=== PATIENT | female | born 1985 | race Caucasian/White ===

== ENCOUNTER 2019-10-19 15:25 | Emergency (ER) | payer MEDICAID, SELFPAY ==
[2019-10-19 15:29] VITALS: BMI 25.0
[2019-10-19 15:32] VITALS: BP 131/74; PULSE 69; RESP 16; TEMP 36.7; O2SAT 100
--- NOTE | 2019-10-19 15:59 | W.ED.BACK ---
Documented by User: MANUEL Madrid 10/24/19 07:02 HPI - Back Pain/Injury General: Chief Complaint: Back Pain/Injury Stated Complaint: Back pain Time Seen by Provider: 10/19/19 15:59 PFSH ED PFSH: Statuses (acute, chronic, etc) shown below reflect problem list status as previously entered and may not be historically accurate Social History Smoking and tobacco status: current every day smoker Course Vital Signs: Vital signs: Vital Signs Temperature 98.2 F 10/19/19 18:26 Pulse Rate 70 10/19/19 18:26 Respiratory Rate 14 10/19/19 18:26 Blood Pressure 127/80 10/19/19 18:26 Pulse Oximetry 100 10/19/19 18:26 MDM - Back Pain/Injury MDM Narrative: Medical decision making narrative: I had started a note in this patient but ended up taking my name off because I didn't get to see her prior to shift change. Pt was ultimately seen/assessed by Keyon Michael PA-C. I did not participate in any aspect of her care ES Discharge Plan Discharge Patient Disposition: Home, Self-Care Clinical Impression: Contusion of rib on right side Qualifiers: Encounter type: initial encounter Qualified Code(s): S20.211A - Contusion of right front wall of thorax, initial encounter Condition: Stable Discharge Orders: Discharge Order (Routine); Ordered 10/19/19 Ordered By: Keyon Michael Referrals: Magaly Coppola FNP [Family Provider] - Debbie Gerber FNP [Primary Care Provider] - Discharge Diet: Regular Discharge Activity: Increase activity as tolerated Activity Restrictions/Additional Instructions: Follow-up with your primary care doctor in 5-7 days for reevaluation. Apply ice and/or warm moist heat to painful area for some symptom relief. Take [id number] ibuprofen or Aleve for pain and inflammation. Limit lifting for the next 3-4 days. Discharge Date/Time: 10/19/19 18:27 Coding Level of Care Code ED Security Orderly for Chg Fwd Documented by User: MANUEL Geiger 10/20/19 03:24 HPI - Back Pain/Injury General: Chief Complaint: Back Pain/Injury Stated Complaint: Back pain Time Seen by Provider: 10/19/19 15:59 History of Present Illness: HPI Narrative: Patient is a 34-year-old female comes into the ED with right posterior rib pain. Pain started last night she had trouble sleeping and getting into a comfortable position. She says last night she was getting laundry out of her washer and her washing machine sits tall when she reached to the time to get close out he put a lot of pressure and weight on the right side of her body. She said in her feet were actually off the ground while she was reaching in to Grab clothes so all of her weight was on the right side of ribs. She has taken ibuprofen at 3:00 this morning and it didn't provide any relief. Pain is sharp and pleuritic. She has mild nausea Due to pain. Denies any other trauma her mechanism of injury. Denies shortness of breath, chest pain, vomiting, bladder or bowel symptoms. Review of Systems General: Reports: 10 or more systems reviewed and unremarkable except in HPI and below PFSH ED PFSH: Statuses (acute, chronic, etc) shown below reflect problem list status as previously entered and may not be historically accurate Social History Smoking and tobacco status: current every day smoker Physical Exam Const: COMMON NORMALS: oriented x3 HENMT: COMMON NORMALS: normocephalic HEAD & SCALP: normocephalic MOUTH: oral and palatal mucosa normal THROAT: posterior oropharynx normal and uvula midline Neck/C-Spine: COMMON NORMALS: supple GENERAL: Yes normal visual inspection Chest: CHEST: Yes localized rib tenderness with anteroposterior compression Location: 9th rib, 10th rib and 11th rib Resp: COMMON NORMALS: normal respiratory effort, no retractions, no use of accessory muscles and clear to auscultation bilaterally AUSCULTATION: clear to auscultation bilaterally Cardio: COMMON NORMALS: regular rate, regular rhythm, S1 normal heart sound, S2 normal heart sound, no gallops, no clicks, no murmurs and peripheral pulses 2+ throughout RATE: regular rate RHYTHM: regular rhythm HEART SOUNDS: S1 normal and S2 normal PERIPHERAL PULSES: pulses 2+ throughout GI: COMMON NORMALS: normal to inspection, nondistended, normoactive bowel sounds, soft to palpation, non-tender and no masses PALPATION: Yes soft : COMMON NORMALS: Yes no CVA tenderness BLADDER/KIDNEY EXAM: Yes no CVA tenderness Back/Pelvis: COMMON NORMALS: no CVA tenderness THORACIC SPINE/UPPER BACK: Yes paraspinal muscle tenderness Thoracic paraspinal muscle tenderness: right Extremity: COMMON NORMALS: normal to inspection Neuro: COMMON NORMALS: oriented x3 and moves all extremities Course Vital Signs: Vital signs: Vital Signs Temperature 98.2 F 10/19/19 18:26 Pulse Rate 70 10/19/19 18:26 Respiratory Rate 14 10/19/19 18:26 Blood Pressure 127/80 10/19/19 18:26 Pulse Oximetry 100 10/19/19 18:26 MDM - Back Pain/Injury Imaging Data^: CXR: Attestation: I personally reviewed and interpreted this imaging study as follows: My impression: No acute findings or rib fractures seen. pending final radiology report. Discharge Plan Discharge Patient Disposition: Home, Self-Care Clinical Impression: Contusion of rib on right side Qualifiers: Encounter type: initial encounter Qualified Code(s): S20.211A - Contusion of right front wall of thorax, initial encounter Condition: Stable Discharge Orders: Discharge Order (Routine); Ordered 10/19/19 Ordered By: Keyon Michael Referrals: Magaly Coppola FNP [Family Provider] - Debbie Gerber FNP [Primary Care Provider] - Discharge Diet: Regular Discharge Activity: Increase activity as tolerated Activity Restrictions/Additional Instructions: Follow-up with your primary care doctor in 5-7 days for reevaluation. Apply ice and/or warm moist heat to painful area for some symptom relief. Take [id number] ibuprofen or Aleve for pain and inflammation. Limit lifting for the next 3-4 days. Discharge Date/Time: 10/19/19 18:27 Coding Level of Care Code ED Security Orderly for Manuel Haji
--- NOTE | 2019-10-19 17:24 | XR_ITS ---
WS: [id number] Right rib detail, 10/19/2019 Clinical Data: posterior right rib pain Comparison: None. Findings: The right ribs are intact without fracture. No bone destruction or erosion is seen. There is no subc utaneous emphysema or right-sided pneumothorax. The adjacent right clavicle, scapula and humerus are not remarkable. There are clips in the right upper quadrant from a cholecystectomy. XR/XR ribs RT 2V* [id number] Impression: Negative right rib detail.
[2019-10-19] MEDS: ketorolac 30 mg/mL INJ IM (17:35)
[2019-10-19 18:26] VITALS: BP 127/80; PULSE 70; RESP 14; TEMP 36.8; O2SAT 100
== END 2019-10-19 18:27 | disposition home or self-care (01) ==
PROVIDERS: Emergency Provider Physician Assistant; Family Provider Nurse Practitioner Family; PCP Nurse Practitioner
DX: S20.211A Contusion of right front wall of thorax, initial encounter (principal); X50.9XXA Other and unspecified overexertion or strenuous movements or postures, initial encounter; F17.210 Nicotine dependence, cigarettes, uncomplicated
CPT/HCPCS: 71100; 96372; 99281; J1885

== ENCOUNTER 2020-08-02 11:33 | Emergency (ER) | payer MEDICAID, SELFPAY ==
[2020-08-02 11:36] VITALS: PULSE 56; RESP 22; O2SAT 98; BMI 28.1
--- NOTE | 2020-08-02 11:43 | W.ED.ABDPA2 ---
HPI - Abdominal Pain General: Chief Complaint: Abdominal Pain Stated Complaint: SEVERE ABDOMINAL PAIN Time Seen by Provider: 08/02/20 11:41 History of Present Illness: HPI narrative: Patient is a 35-year-old female comes to the ED with abdominal pain, nausea/vomiting. Symptoms started last night. She has a past surgical history of cholecystectomy, and tubal ligation. Abdominal pain is located in the left lower quadrant and lower pelvic region. Pain is constant and it is rated 8 out of 10. endorses diarrhea, but chronic issue since gall bladder removal-no acute change. She has had multiple episodes of emesis since onset of symptoms last night. Denies fever, chills, chest pain, shortness of breath, dysuria, hematuria, urinary frequency/urgency, vaginal bleeding or vaginal lesions. Associated Symptoms: Reports diarrhea (chronic issue since gall bladder removal-no acute change), nausea and vomiting; Denies chills, constipation, dysuria, fever(s), hematochezia and hematuria Review of Systems Const: Denies: fever(s), chills or fatigue Eyes: Denies: change in vision or eye discomfort ENMT: Denies: throat pain, odynophagia, nasal discharge or nasal congestion Card: Denies: chest pain, palpitations, edema, swelling of feet/ankles, dyspnea on exertion or orthopnea Resp: Denies: dyspnea, productive cough or non-productive cough GI: Reports: abdominal pain, nausea, vomiting and diarrhea (chronic issue since gall bladder removal-no acute change); Denies: constipation or hematochezia : Denies: flank pain, dysuria or hematuria Musc: Denies: neck pain, back pain or extremity swelling Skin/Breast: Denies: rash or new lesions Neuro: Denies: headache(s), numbness in extremities or weakness in extremities PFSH ED PFSH: Family History Sister Bleeding disorder ITP Grandmother Cancer Grandma - Maternal : Colon Cancer Grandfather Cancer Lung Cancer Mother Diabetes Social History Smoking and tobacco status: current every day smoker Second hand smoke exposure: Yes Marital status: Physical Exam Const: COMMON NORMALS: patient oriented x3 and alert GENERAL APPEARANCE: cooperative and ill appearing (Patient appears some pain and discomfort. She is also having episodes of emesis upon arrival here in the ED.) HENMT: COMMON NORMALS: normocephalic HEAD & SCALP: normocephalic MOUTH: Normal oral and palatal mucosa present THROAT: posterior oropharynx normal and uvula midline Neck/C-Spine: COMMON NORMALS: supple GENERAL: Yes normal visual inspection Resp: COMMON NORMALS: normal respiratory effort, No retractions, No use of accessory muscles and clear to auscultation bilaterally EFFORT & INSPECTION: Yes able to speak in complete sentences, No tachypneic, No respiratory distress and No labored AUSCULTATION: clear to auscultation bilaterally Cardio: COMMON NORMALS: regular rate, regular rhythm, S1 normal heart sound present, S2 normal heart sound present, No gallops present (Cardio), No clicks present (Cardio), No murmurs present (Cardio) and Peripheral pulses 2+ throughout RATE: regular rate RHYTHM: regular rhythm HEART SOUNDS: S1 normal heart sound present and S2 normal heart sound present PERIPHERAL PULSES: Peripheral pulses 2+ throughout GI: COMMON NORMALS: Normal to inspection, nondistended, normoactive bowel sounds present, Soft to palpation and no masses PALPATION: Yes Soft to palpation and Yes Tenderness to palpation present (GI) Details: LLQ (moderate to severe tenderness) and other (Tenderness over bladder.) : BLADDER/KIDNEY EXAM: Yes CVA tenderness on the left Back/Pelvis: GENERAL BACK: Yes CVA tenderness Extremity: COMMON NORMALS: normal to inspection and no pedal edema Neuro: COMMON NORMALS: patient oriented x3 SENSORIUM/ORIENTATION: Yes alert GAIT: Yes Normal gait present Skin: GENERAL SKIN EXAM: dry skin Course Reevaluation(s): Reevaluation #1: After patient was given morphine her pain had improved. Blood pressure was in the room was 96/57. Time: 13:05 Reevaluation #2: Patient states she feels a lot better and her pain is under control and she is ready for discharge. Time: 14:10 Vital Signs: Vital signs: Vital Signs Pulse Rate 73 08/02/20 17:15 Respiratory Rate 20 H 08/02/20 17:15 Blood Pressure 95/62 08/02/20 17:15 Pulse Oximetry 97 08/02/20 17:15 BP 96/57 when I was in the Room. MDM - Abdominal Pain MDM Narrative: Medical decision making narrative: Patient is a 35-year-old female comes to the ED with left lower abdomen pain, nausea vomiting. Patient had some left CVA tenderness. White blood cell count 14.1 and rest of CBC and CMP was unremarkable. UA showed RBCs. CT the abdomen showed kidney stone on left side at UVJ that is approximately 7 x 4 mm. After patient got some IV fluids, Zofran and morphine her pain greatly improved. I placed a referral order with case management for patient to be referred to Dr. Lay. Patient was discharged with hydrocodone, naproxen, Zofran and tamsulosin. She was told to strain her urine to catch stone and bring to Dr. Lay's office for stone to be analyzed. Return to ED precautions given. Patient understood and agreed with plan. Lab Data: Attestation: I reviewed the patient's lab results. Labs: Lab Results 08/02/20 08/02/20 08/02/20 Range/Units 13:58 13:58 13:58 WBC 14.1 H (4.0-10.0) 10^3/ uL RBC 4.86 (4.1-5.3) 10^6/u L Hgb 15.1 (11.5-15.3) g/dL Hct 45.4 (37.0-47.0) % MCV 93.4 (81-99) fL MCH 31.1 (28.0-34.0) pg MCHC 33.3 (30.0-36.0) g/dL RDW 11.6 L (12.1-15.1) % Plt Count 251 (130-400) 10^3/c mm MPV 9.6 (7.4-10.4) fL Neut % (Auto) 80.4 % Lymph % (Auto) 14.5 % Converse % (Auto) 4.4 % Eos % (Auto) 0.1 % Baso % (Auto) 0.3 % Neut # (Auto) 11.33 H (1.8-7.7) 10^3/u L Lymph # (Auto) 2.0 (0.8-4.8) 10^3/u L Converse # (Auto) 0.6 (0.2-0.9) 10^3/u L Eos # (Auto) 0.0 (0.0-0.8) 10^3/u L Baso # (Auto) 0.0 (0.0-0.1) 10^3/u L Nucleated RBC % (a uto) 0 % Nucleated RBCs # 0.0 /100WBC Sodium 137 (136-145) mmol/L Potassium 3.7 (3.5-5.1) mmol/L Chloride 103 (98-107) mmol/L Carbon Dioxide 24 (22-29) mmol/L Anion Gap 13.7 (5-19) BUN 10 (6-20) mg/dL Creatinine 0.9 (0.5-0.9) mg/dL GFR Calculation 70.8 L (90-130) mL/min Glucose 122 H (65-115) mg/dL Calculated Osmolal ity 284 L (285-295) mOsm/k g Lactic Acid (0.5-2.2) mmol/L Calcium 9.1 (8.5-10.5) mg/dL Total Bilirubin 0.5 (0.15-1.2) mg/dL AST 25 (0-32) U/L ALT 45 H (0-33) U/L Alkaline Phosphata se 63 (35-105) IU/L Total Protein 7.2 (6.6-8.7) g/dL Albumin 4.7 (3.5-5.2) g/dL Globulin 2.5 (1.3-4.6) g/dL Lipase 31 (13-60) U/L HCG, Qual Negative (Negative) Urine Color (Yellow) Urine Appearance (CLEAR) Urine pH (5-7) Ur Specific Gravit y (1.005-1.030) Urine Protein (Negative) Urine Glucose (UA) (Normal) Urine Ketones (Negative) Urine Blood (Negative) Urine Nitrate (Negative) Urine Bilirubin (Negative) Urine Urobilinogen (Negative) mg/dL Ur Leukocyte Nelly ase (Negative) Urine RBC (0-2) /hpf Urine WBC (0-5) /hpf Ur Squamous Epith Cells (0-5) /hpf Amorphous Sediment Urine Bacteria (NONE) /hpf Urine Mucus /hpf Urine Yeast /hpf 08/02/2008/02/ Range/Units 13:58 15:30 WBC (4.0-10.0) 10^3/ uL RBC (4.1-5.3) 10^6/u L Hgb (11.5-15.3) g/dL Hct (37.0-47.0) % MCV (81-99) fL MCH (28.0-34.0) pg MCHC (30.0-36.0) g/dL RDW (12.1-15.1) % Plt Count (130-400) 10^3/c mm MPV (7.4-10.4) fL Neut % (Auto) % Lymph % (Auto) % Converse % (Auto) % Eos % (Auto) % Baso % (Auto) % Neut # (Auto) (1.8-7.7) 10^3/u L Lymph # (Auto) (0.8-4.8) 10^3/u L Converse # (Auto) (0.2-0.9) 10^3/u L Eos # (Auto) (0.0-0.8) 10^3/u L Baso # (Auto) (0.0-0.1) 10^3/u L Nucleated RBC % (a uto) % Nucleated RBCs # /100WBC Sodium (136-145) mmol/L Potassium (3.5-5.1) mmol/L Chloride (98-107) mmol/L Carbon Dioxide (22-29) mmol/L Anion Gap (5-19) BUN (6-20) mg/dL Creatinine (0.5-0.9) mg/dL GFR Calculation (90-130) mL/min Glucose (65-115) mg/dL Calculated Osmolal ity (285-295) mOsm/k g Lactic Acid 1.4 (0.5-2.2) mmol/L Calcium (8.5-10.5) mg/dL Total Bilirubin (0.15-1.2) mg/dL AST (0-32) U/L ALT (0-33) U/L Alkaline Phosphata se (35-105) IU/L Total Protein (6.6-8.7) g/dL Albumin (3.5-5.2) g/dL Globulin (1.3-4.6) g/dL Lipase (13-60) U/L HCG, Qual (Negative) Urine Color Yellow (Yellow) Urine Appearance Clear (CLEAR) Urine pH 6.5 (5-7) Ur Specific Gravit y 1.005 (1.005-1.030) Urine Protein Neg (Negative) Urine Glucose (UA) Norm (Normal) Urine Ketones Negative (Negative) Urine Blood 3+ H (Negative) Urine Nitrate Negative (Negative) Urine Bilirubin Neg (Negative) Urine Urobilinogen Neg (Negative) mg/dL Ur Leukocyte Nelly ase Negative (Negative) Urine RBC 25-40 H (0-2) /hpf Urine WBC None (0-5) /hpf Ur Squamous Epith Cells 0-4 H (0-5) /hpf Amorphous Sediment Not Reportable Urine Bacteria 1+ H (NONE) /hpf Urine Mucus 1+ /hpf Urine Yeast 1+ H /hpf Imaging Data ^: CT Abd/Pel: Attestation: I personally reviewed and interpreted this imaging study as follows: Radiologist's impression: [address] [address] [address] Scan Report Signed Patient: Tracy Villarreal Unit #: [id number] : 1985 Age/Sex: 35 / F ADM Date: 08/02/20 Loc: ER Room/Bed: Attending Dr: Ordering Provider/Ordering MD: Keyon Michael Date of Service: 08/02/20 Procedure(s): CT abdomen pelvis w con* [id number] Accession Number(s): [id number] Report Number: [id number] PROCEDURE INFORMATION: Exam: CT Abdomen And Pelvis With Contrast Exam date and time: 08/02/2020 1:28 PM Age: 35 years old Clinical indication: Nausea and vomiting; Abdominal pain; Localized; Left lower quadrant (llq); Prior surgery; Surgery type: Gb, c sect, tubal; Additional info: Abdom pain with n/v TECHNIQUE: Imaging protocol: Computed tomography of the abdomen and pelvis with intravenous contrast. Radiation optimization: All CT scans at this facility use at least one of these dose optimization techniques: automated exposure control; mA and/or kV adjustment per patient size (includes targeted exams where dose is matched to clinical indication); or iterative reconstruction. Contrast material: OMNI 300; Contrast volume: 95 ml; Contrast route: INTRAVENOUS (IV); COMPARISON: No relevant prior studies available. RADIATION DOSE METRICS: Total DLP (mGy-cm): 776.07 FINDINGS: Liver: Normal. No mass. Gallbladder and bile ducts: Surgical clips in the gallbladder fossa consistent with cholecystectomy. Pancreas: Normal. No ductal dilation. Spleen: Normal. No splenomegaly. Adrenal glands: Normal. No mass. Kidneys and ureters: One or more nonobstructing right renal calyceal stones. 7 x 4 mm left UVJ stone with mild left hydronephrosis. Stomach and bowel: Unremarkable. No obstruction. No mucosal thickening. Appendix: Normal appendix. Intraperitoneal space: Unremarkable. No free air. No significant fluid collection. Vasculature: One or more calcified pelvic phleboliths. Lymph nodes: Unremarkable. No enlarged lymph nodes. Urinary bladder: Unremarkable as visualized. Reproductive: Probable left corpus luteum cyst with ring enhancement. Bones/joints: Unremarkable. No acute fracture. Soft tissues: Unremarkable. CT/CT abdomen pelvis w con* [id number] IMPRESSION: 7 x 4 mm left UVJ stone with mild left hydronephrosis. Radiation Dose CTDIVOL = (mGy): DLP = 776.07 (mGy-cm) Dictated By: Mckay Fong MD Signed By: Mckay Fong MD Signed Date/Time: 08/02/201452 DD/ 50 Discharge Plan Discharge Patient Disposition: Home Clinical Impression: Kidney stone on left side Condition: Stable Prescriptions: New tamsulosin 0.4 mg capsule 0.4 mg PO DAILY Qty: 20 RF: 0 Zofran 4 mg tablet 4 mg PO Q8H Qty: 10 RF: 0 Naprosyn 500 mg tablet 500 mg PO DAILY PRN (Reason: pain) Qty: 20 RF: 0 No Action Tylenol 325 mg Tablet 325 - 650 mg PO PRN PRN (Reason: Pain) RF: 0 Discharge Orders: Discharge Order (Routine); Ordered 08/02/20 Ordered By: Keyon Michael Referrals: Magaly Coppola FNP [Family Provider] - Debbie Gerber FNP [Primary Care Provider] - Discharge Diet: Regular Discharge Activity: Resume usual activity Patient Instructions: Kidney Stones (ED), How to Strain Your Urine (ED) Activity Restrictions/Additional Instructions: Follow-up with medical provider as directed. Case management should be contacting you in the next several days to set up an appointment with Dr. Lay the urologist. Strain urine to catch stone and drink lots of fluid to stay hydrated and help pass stone. Drink plenty of fluids and stay hydrated. Take medications as prescribed Naproxen for you as well to take for pain. Return to the ER or your medical provider if condition worsens. Please read and understand discharge instructions. If any questions, please ask. Discharge Date/Time: 08/02/20 17:20 Coding Level of Care Code ED Chief Communications Officer for Manuel Fwd Exam Comprehensive
[2020-08-02 11:46] VITALS: BP 79/41
[2020-08-02] MEDS: ondansetron 2 mg/ML SDV 2 mL 4 MG IVP (12:46)
[2020-08-02 12:51] VITALS: RESP 20; O2SAT 99
[2020-08-02] MEDS: morphine 4 mg/mL SDV 1 mL IVP ×2 (12:51→15:37)
[2020-08-02] MEDS: sodium chloride 0.9% 1,000 ML 999 ML IV (13:01)
--- NOTE | 2020-08-02 13:24 | CTR_ITS ---
PROCEDURE INFORMATION: Exam: CT Abdomen And Pelvis With Contrast Exam date and time: 08/02/2020 1:28 PM Age: 35 years old Clinical indication: Nausea and vomiting; Abdominal pain; Localized; Left lower quadrant (llq); Prior surgery; Surgery type: Gb, c sect, tubal; Additional info: Abdom pain with n/v TECHNIQUE: Imaging protocol: Computed tomography of the abdomen and pelvis with intravenous contrast. Radiation optimization: All CT scans at this facility use at least one of these dose optimization techniques: automated exposure control; mA and/or kV adjustment per patient size (includes targeted exams where dose is matched to clinical indication); or iterative reconstruction. Contrast material: OMNI 300; Contrast volume: 95 ml; Contrast route: INTRAVENOUS (IV); COMPARISON: No relevant prior studies available. RADIATION DOSE METRICS: Total DLP (mGy-cm): 776.07 FINDINGS: Liver: Normal. No mass. Gallbladder and bile ducts: Surgical clips in the gallbladder fossa consistent with cholecystectomy. Pancreas: Normal. No ductal dilation. Spleen: Normal. No splenomegaly. Adrenal glands: Normal. No mass. Kidneys and ureters: One or more nonobstructing right renal calyceal stones. 7 x 4 mm left UVJ stone with mild left hydronephrosis. Stomach and bowel: Unremarkable. No obstruction. No mucosal thickening. Appendix: Normal appendix. Intraperitoneal space: Unremarkable. No free air. No significant fluid collection. Vasculature: One or more calcified pelvic phleboliths. Lymph nodes: Unremarkable. No enlarged lymph nodes. Urinary bladder: Unremarkable as visualized. Reproductive: Probable left corpus luteum cyst with ring enhancement. Bones/joints: Unremarkable. No acute fracture. Soft tissues: Unremarkable. CT/CT abdomen pelvis w con* [id number] IMPRESSION: 7 x 4 mm left UVJ stone with mild left hydronephrosis. Radiation Dose CTDIVOL = (mGy): DLP = 776.07 (mGy-cm)
[2020-08-02 14:12] LABS: Basophils % 0.3 %; Eosinophils % 0.1 %; Hematocrit 45.4 % (37.0-47.0); Hemoglobin 15.1 g/dL (11.5-15.3); Lymphocytes % 14.5 %; Mean Corpuscular HGB Conc 33.3 g/dL (30.0-36.0); Mean Corpuscular Hemoglobin 31.1 pg (28.0-34.0); Mean Corpuscular Volume 93.4 fL (81-99); Mean Platelet Volume 9.6 fL (7.4-10.4); Monocytes # 0.6 10^3/uL (0.2-0.9); Monocytes % 4.4 %; Neutrophils # 11.33 10^3/uL (1.8-7.7); Neutrophils % 80.4 %; Nucleated Red Blood Cells % 0 %; Platelet Count 251 10^3/cmm (130-400); Red Blood Count 4.86 10^6/uL (4.1-5.3); Red Cell Distribution Width 11.6 % (12.1-15.1); White Blood Count 14.1 10^3/uL (4.0-10.0)
[2020-08-02] MEDS: metoclopramide 5 mg/mL SDV 2 mL 10 MG IVP (14:26)
[2020-08-02 14:30] LABS: HCG, Serum Qual Negative (Negative)
[2020-08-02 14:35] LABS: Alanine Aminotransferase 45 U/L (0-33); Albumin Level 4.7 g/dL (3.5-5.2); Alkaline Phosphatase 63 IU/L (35-105); Anion Gap 13.7 (5-19); Aspartate Amino Transferase 25 U/L (0-32); Blood Urea Nitrogen 10 mg/dL (6-20); Calcium 9.1 mg/dL (8.5-10.5); Carbon Dioxide 24 mmol/L (22-29); Chloride 103 mmol/L (98-107); Globulin 2.5 g/dL (1.3-4.6); Glomerular Filtration Rate 70.8 mL/min (90-130); Glucose 122 mg/dL (65-115); Lipase 31 U/L (13-60); Osmolality Calculated 284 mOsm/kg (285-295); Potassium 3.7 mmol/L (3.5-5.1); Sodium 137 mmol/L (136-145); Total Bilirubin 0.5 mg/dL (0.15-1.2); Total Protein 7.2 g/dL (6.6-8.7)
[2020-08-02 14:36] LABS: Lactic Sepsis W/Reflex 1.4 mmol/L (0.5-2.2)
[2020-08-02] MEDS: iohexol 300 mg/mL 100 mL Btl IV (14:38)
[2020-08-02 15:37] VITALS: RESP 16; O2SAT 97
[2020-08-02 15:40] VITALS: BP 93/46
[2020-08-02 16:27] LABS: Bilirubin Urine Neg (Negative); Blood Urine 3+ (Negative); Glucose Urine UA Norm (Normal); Ketones Urine Negative (Negative); Leukocyte Esterase Urine Negative (Negative); Nitrate Urine Negative (Negative); Protein Urine Neg (Negative); RBC Urine 25-40 /hpf (0-2); Specific Gravity, Urine 1.005 (1.005-1.030); Urine Appearance Clear (CLEAR); Urine Color Yellow (Yellow); Urobilinogen Urine Neg (Negative); pH Urine 6.5 (5-7)
[2020-08-02 16:28] LABS: Add Urine Culture? Yes; Bacteria Urine 1+ /hpf; Mucus Urine 1+ /hpf; Squamous Epithelial Cell Urine 0-4 /hpf (0-5)
[2020-08-02] MEDS: tamsulosin 0.4 mg Capsule PO (16:53)
[2020-08-02 17:15] VITALS: BP 95/62; PULSE 73; RESP 20; O2SAT 97
--- NOTE | 2020-08-05 09:28 | DCPLANNER ---
central supply manager had message to schedule a follow up appointment for patient with Dr. Lay. central supply manager called the office of Dr. Lay, spoke with Saba, gave clinic patients information. central supply manager was told that patients information would be printed and reviewed. Clinic will call patient with appointment information..
--- NOTE | 2020-08-06 11:21 | DCPLANNER ---
Patient has a follow up appointment scheduled Thursday, August 06, 2020 at 1:[address] Lay. Clinic will call patient with appointment information.
--- NOTE | 2020-09-17 12:41 | DCPLANNER ---
Patient had a follow up appointment scheduled for 08.06.[address] Lay - patient did attend appointment.
== END 2020-08-02 17:20 | disposition home or self-care (01) ==
PROVIDERS: Emergency Provider Physician Assistant; Family Provider Nurse Practitioner Family; PCP Nurse Practitioner
DX: N20.0 Calculus of kidney (principal); F17.210 Nicotine dependence, cigarettes, uncomplicated
CPT/HCPCS: 12345; 36415; 74177; 80053; 81001; 83605; 83690; 84703; 85025; 87040; 87077; 87086; 87205; 96361; 96374; 96375; 96376; 99283; J2270; J2405; J2765; J7030; Q9967

== ENCOUNTER 2020-08-06 11:39 | Outpatient (CLI) | payer MEDICAID, SELFPAY ==
--- NOTE | 2020-08-06 11:45 | XR_ITS ---
WS: [id number] KUB, 08/06/2020 Clinical Data: URETERAL STONE Comparison: CT abdomen and pelvis, 08/02/2020. Findings: No abnormal intraabdominal masses or calcifications are seen. There is no dilatated small bowel or ev idence of obstruction. There is a calcification in on the left side of the true pelvis measuring approximately 0.4 x 0.8 cm corresponding to the distal left ureteral calculus. There are also left-sided phleboliths. XR/XR KUB [id number] Impression: Possible left ureterovesical junction calculus.
== END 2020-08-06 11:40 | disposition home or self-care (01) ==
LOC: RAD 11:45
PROVIDERS: PCP Registered Nurse; Visit Provider Urology
DX: N20.1 Calculus of ureter (principal)
CPT/HCPCS: 74018; 81003; 87635

== ENCOUNTER 2020-08-08 10:11 | Day surgery (SDC) | payer MEDICAID, SELFPAY ==
[2020-08-07 13:02] VITALS: BMI 28.1
[2020-08-08] VITALS (7 sets, daily range): BP systolic 97–118; BP diastolic 62–75; PULSE 62–92; RESP 12–24; TEMP 36.1–36.6; O2SAT 94–98
--- NOTE | 2020-08-08 | SCC_ITS ---
Procedure Done: Cystoscopy, LEFT: Retrograde, ureteroscopy, laser, stent 19.4 seconds of fluoroscopic guidance, for a cumulative dose of 4.22 mGy, was provided to Dr. Lay by the radiology department. C-arm images of the abdomen were saved for the patient's permanent record. [facility]
[2020-08-08 10:43] LABS: OR HCG Qualitative Urine Negative (Negative)
--- NOTE | 2020-08-08 10:59 | SC_ITS ---
WS: [id number] Left ureteroscopy 08/08/2020. FINDINGS: Single image obtained during the procedure demonstrates a catheter positioned near the left ureterope lvic junction. It appears small amount of contrast was injected confirming the position. SC/C-arm FL for Urology IMPRESSION: Left ureteroscopy as above.
[2020-08-08] MEDS: sodium chloride 0.9% 1,000 ML 30 ML IV (11:55)
--- NOTE | 2020-08-08 12:34 | ANES.PREANE2 ---
Pre-Anesthetic Assessment Pre-Anesthetic Assessment: Height/Weight: Height 1.7 m Weight 81.647 kg Temp Pulse Resp BP Pulse Ox 97.1 F L 91 18 118/75 98 08/08/20 11:45 08/08/20 11:45 08/08/20 11:45 08/08/20 11:45 08/08/20 11:45 Preop Diagnosis: Refractory left distal ureteral stone Proposed Procedure: Operation Date: 08/08/20 13:10 Proposed Procedures p Laser Lithotripsy 79588 [id number] n20.1(Not Applicable) - Anselmo Lay MD s Cystoscopy(Left) - Anselmo Lay MD s Retrograde Pyelogram(Not Applicable) - Anselmo Lay MD s Ureteroscopy(Not Applicable) - Anselmo Lya MD s Ureteral Stent Placement(Not Applicable) - Anselmo Lay MD Familial anesthetic complications: None Was Beta Caity taken within 24 hours: N/A Last intake: Intake Last Liquid Date 08/08/20 Last Liquid Time 09:00 Last Solid Date 08/07/20 Last Solid Time 23:30 Social: Social History: Tobacco and No alcohol Exam: Pre-Anes Outpt Exam: alert, oriented x 3, clear to auscultation bilaterally and regular rate & rhythm Airway: Cervical ROM: WNL MP: 1 Dentition: Other (crowns) Anesthetic Plan: ASA status: 1 Anesthesia: General Risk of > 500 ml blood loss (7ml/kg in children): No Meds/Allergies Current Medications: Current Medications Generic Name Dose Route Start Last Admin Trade Name Freq PRN Reason Stop Dose Admin Sodium Chloride 1,000 mls @ 30 ml s/hr 08/08/20 07:15 08/08/20 11:55 Sodium Chloride 0.9% IV 08/09/20 07:14 30 mls/hr .Q24H ALFREDITO Administration PFSH Anesthesia PFSH: Medical History Left ureteral stone Surgical History History of delivery x 2 Hx of cholecystectomy Hx of tonsillectomy Family History Sister Bleeding disorder ITP Grandmother Cancer Grandma - Maternal : Colon Cancer Grandfather Cancer Lung Cancer Mother Diabetes Social History Smoking and tobacco status: current every day smoker Second hand smoke exposure: Yes Alcohol intake: never Adopted: No Caregiver/support person: No Lives independently: No Household members: spouse Marital status: Current occupational status: employed Female Reproductive History: Date of last menstrual period: 06/19/20 Data Anesthesia Other Labs: Laboratory Results - last 48 hr 08/08/20 10:42 Urine HCG, Qual Negative Cardiac Studies: No Data to Display
--- NOTE | 2020-08-08 13:31 | W.PM.OPSUD ---
Surgery/Procedure H&P Update DATE OF PROCEDURE: August 08, 2020 DATE H&P PERFORMED: 08/06/20 H&P UPDATE INFORMATION: I have reviewed H&P completed within last 30 days, I have examined patient prior to procedure, No changes to prior documentation and H&P is in [facility] [place] EMR on date indicated PREOP DIAGNOSIS: Refractory left distal ureteral stone PLANNED PROCEDURE: Operation Date: 08/08/20 13:10 Proposed Procedures p Laser Lithotripsy 02517 [id number] n20.1(Not Applicable) - Anselmo Lay MD s Cystoscopy(Left) - MD rebecca Cox Retrograde Pyelogram(Not Applicable) - MD rebecca Cox Ureteroscopy(Not Applicable) - Anselmo Lay MD s Ureteral Stent Placement(Not Applicable) - Anselmo Lay MD
[2020-08-08] MEDS: levofloxacin-dextrose 5 % 500 MG/100 ML PREMIX 100 MG IV (13:34)
[2020-08-08] MEDS: iohexol 300 mg/mL 50 mL Btl (OR ONLY) XX (14:12)
--- NOTE | 2020-08-08 14:28 | PM.OP ---
Operative Report Date of procedure: August 08, 2020 Pre-op Diagnosis: Refractory left distal ureteral stone Post-op diagnosis: same Procedure Done: Cystoscopy, LEFT: Retrograde, ureteroscopy, laser, stent Implants: 4.5 x 26 cm left ureteral stent no string Specimens removed/disposition: Stone fragments Pathology: Stone fragments Surgeon: Rosanne Anesthesia: General Estimated blood loss: Minimal Urine output: Not measured Complications: None Findings: Stone in the expected position in the left distal ureter. Fragmented with a 365 ?m thulium superpulse fiber Stent left indwelling at the completion of the procedure Condition: stable Disposition: PACU Brief History: Tracy is a very pleasant 35-year-old white female with refractory severe intermittent left renal colic secondary to a large left distal ureteral stone confirmed on CT scan and follow-up KUB. Elected to proceed with treatment due to the severity of her symptoms. Procedure: After routine preoperative evaluation examination and obtaining of informed consent she was taken to the operating suite on 08/08/2020 where general anesthesia was administered without difficulty after appropriate timeout was performed, SCDs confirmed to be functioning, preoperative antibiotics administered, beta-marcos protocol confirmed. Prepped and draped in usual sterile fashion in dorsolithotomy position pain careful attention to avoiding pressure points. 21 [place] cystoscope with 30 degree lens was introduced into the urethral meatus and advanced into the bladder under videoscopy. Bladder was systematically examined and found to be within normal limits except for erythema of the left ureteral orifice and intramural tunnel. An 8 [place] cone-tip catheter was intubated to the left ureteral orifice for left retrograde ureteropyelogram: The ureter just below the stone was normal the filling defect was seen consistent with a stone in the ureter proximal to that point was dilated without significant tortuosity. Flexible tip guidewire was then easily passed up the left ureter bypassing the stone and curling in the area of the upper pole calyx. Distal ureter was then dilated with a 15 [place] 4 cm balloon with position below the stone. Catheter was actually used to push the stone up to slightly. Maximum dilation pressure was 4 joon. The wire was secured to the drapes as a safety wire and then a 7 [place] offset semirigid ureteroscope was advanced next to the wire up the left ureter where the stone was encountered in the expected position and it was then fragmented with a 365 ?m homing laser fiber into small pieces that were removed with a nitinol basket. Final inspection showed some inflammatory changes with the stone of been located but other than that the ureter was fine and there were no additional fragments remaining. The cystoscope was then backloaded over the guidewire and a 4.5 [place] by 26 cm double-pigtail stent was advanced over the guidewire through the cystoscope into appropriate position as confirmed via fluoroscopy and cystoscopy. Bladder was drained. Some of the fragments removed from the ureter within the bladder and these were flushed free. She tolerated procedure well without complications and was awakened in the operating room and returned to the recovery in stable condition. PLANS: 1. Discharge from outpatient surgery today 2. Follow-up next week for cystoscopy and stent removal
[2020-08-08] MEDS: acetaminophen 500 mg Tablet 1000 MG PO (15:11)
--- NOTE | 2020-08-08 15:40 | ANE.PACU2 ---
Inpatient post-anesthesia follow up: Airway intact: Yes Vital signs: Temperature 98 F Pulse Rate 62 Respiratory Rate 16 Blood Pressure 102/62 Pulse Oximetry 96 Oxygen Delivery Me thod Room Air Oxygen Flow Rate Fraction of Inspir ed Oxygen Hydration adequate: Yes Nausea and vomiting: Yes Pain level: 2 Mental status: Baseline
== END 2020-08-08 15:40 | disposition home or self-care (01) ==
PROVIDERS: PCP Registered Nurse; Visit Provider Urology
PROC: (CPT 52356; principal; 2020-08-08 14:20)
PROC: 0TJB8ZZ Inspection of Bladder, Via Natural or Artificial Opening Endoscopic (ICD-10-PCS; CPT 52000; 2020-08-08 14:20)
PROC: (CPT 74420; 2020-08-08 14:20)
PROC: 0TJ98ZZ Inspection of Ureter, Via Natural or Artificial Opening Endoscopic (ICD-10-PCS; CPT 52351; 2020-08-08 14:20)
PROC: (CPT 50605; 2020-08-08 14:20)
DX: N20.1 Calculus of ureter (principal); F17.210 Nicotine dependence, cigarettes, uncomplicated
CPT/HCPCS: 52356; 12345; 76000; 81025; 82365; 84703; 88300; C1725; C2625; J1956; J3010; J7030

== ENCOUNTER 2020-08-14 15:41 | Outpatient (CLI) | payer MEDICAID, SELFPAY ==
--- NOTE | 2020-08-14 15:30 | XR_ITS ---
WS: [id number] KUB, 08/14/2020 Clinical Data: URETERAL STONE Comparison: KUB, 08/06/2020. Findings: No abnormal intraabdominal masses or calcifications are seen. There is no dilatated small bowel or ev idence of obstruction. A left ureteral stent has been inserted extending from the bladder into the left renal pelvis. XR/XR KUB [id number] Impression: Insertion of left ureteral stent.
== END 2020-08-14 15:42 | disposition home or self-care (01) ==
LOC: RAD 15:44
PROVIDERS: PCP Registered Nurse; Visit Provider Urology
DX: N20.1 Calculus of ureter (principal); Z96.0 Presence of urogenital implants
CPT/HCPCS: 74018; 81003

== ENCOUNTER → 2020-09-11 15:33 | Outpatient (BNVA) | payer MEDICAID, SELFPAY | PROVIDERS: PCP Registered Nurse; Visit Provider Nurse Practitioner Family | DX: J02.9 Acute pharyngitis, unspecified (principal); J02.8 Acute pharyngitis due to other specified organisms; B96.89 Other specified bacterial agents as the cause of diseases classified elsewhere | CPT/HCPCS: 87880 ==

== ENCOUNTER → 2021-03-04 08:57 | Outpatient (BNVA) | payer MEDICAID, SELFPAY | PROVIDERS: PCP Registered Nurse; Visit Provider Specialist | DX: R20.0 Anesthesia of skin (principal); R20.2 Paresthesia of skin; F17.210 Nicotine dependence, cigarettes, uncomplicated | CPT/HCPCS: 95908 ==

== ENCOUNTER → 2023-10-05 09:15 | Outpatient (BNVA) | payer MEDICAID, SELFPAY | PROVIDERS: PCP Registered Nurse; Visit Provider Nurse Practitioner Family | DX: R39.9 Unspecified symptoms and signs involving the genitourinary system (principal); J06.9 Acute upper respiratory infection, unspecified | CPT/HCPCS: 87400; 87426 ==

== ENCOUNTER → 2025-02-13 08:42 | Outpatient (BNVA) | payer MEDICAID, SELFPAY | PROVIDERS: PCP Family Medicine; Referring Provider Nurse Practitioner Family; Visit Provider Nurse Practitioner Family | DX: L70.0 Acne vulgaris (principal); L57.8 Other skin changes due to chronic exposure to nonionizing radiation; L91.8 Other hypertrophic disorders of the skin; Z78.9 Other specified health status; R58 Hemorrhage, not elsewhere classified; L29.89 Other pruritus; R20.8 Other disturbances of skin sensation; L53.8 Other specified erythematous conditions; L82.0 Inflamed seborrheic keratosis | CPT/HCPCS: 17110; 99204 ==